=== PATIENT | male | born 1985 | race Caucasian/White ===

== ENCOUNTER 2018-07-31 07:33 | Emergency (ER) | payer BC, SELFPAY ==
[2018-07-31 07:39] VITALS: BP 171/97; PULSE 108; RESP 18; TEMP 36.2; O2SAT 95
--- NOTE | 2018-07-31 08:06 | ED.GENADUL_ITS ---
Discharge Plan Disposition Patient Disposition: HOME Condition: Stable Discharge Details Chief Complaint: RespSymp Clinical Impression: Viral URI, RAD (reactive airway disease) Primary Care Provider: Ming Craig ED Provider: Flori Jennings Home Meds and New Rx's Prescriptions: New prednisone 20 mg tablet 60 mg PO DAILY Qty: 12 RF: 0 Continued doxycycline hyclate 100 MG capsule 100 mg PO BID Qty: 13 RF: 0 albuterol sulfate [ProAir HFA] 200 PUFF HFA aerosol inhaler 2 puff Inhalation Q4H PRN PRNQty: 1 RF: 0 ibuprofen 200 MG tablet 200 mg PO PRNRF: 0 Discharge Instructions Instructions: Prednisone (By mouth), Upper Respiratory Infection (ED), Reactive Airways Disease (ED) Additional Instructions: Please return immediately to the emergency department if you develop any new or worsening symptoms or if you become otherwise concerned. It is extremely important that you make an appointment to be seen by your primary care doctor within the next 1-2 weeks in follow-up for this visit. Referrals: Ming Craig [Primary Care Provider] - Discharge Data Discharge Date/Time-TO BE ENTERED AT DEPARTURE: 07/31/18 10:48 Medical Decision Making Tae Hunter is a 33-year-old male without history of major medical problems presenting to the emergency department with cough for the past 2-3 days, also with very mild shortness of breath and nausea without vomiting. On exam patient is very well and nontoxic appearing. He has normal work of breathing with slight wheeze in bilateral upper lobes. Concern for influenza versus reactive airway disease versus less likely pneumonia. Heart rate 100 on exam. Exam/history not consistent with sepsis, ACS, PE, acute aortic pathology, metabolic/right disturbance, anemia. Plan for CXR, flu swab, duoneb, IVF hydration. Will monitor and reassess. On exam patient reports feeling much better after breathing treatment and fluids. On exam is improved, still slight wheeze bilateral upper lobes. Plan for second DuoNeb. Given that patient has been using albuterol inhaler at home will start patient on prednisone. Chest x-ray okay, flu swab negative. Suspect viral upper respiratory infection with reactive airway disease component. I had a lengthy discussion with Patient regarding return to emergency department precautions and importance of outpatient follow-up with PCP. Pt verbalizes understanding of the plan. Disposition decision was made weighing the risks and benefits of hospitalization versus outpatient treatment, the risk for further decompensation, and the patient's wishes. Medical Records Medical records reviewed: Yes I reviewed the patient's medical records. Imaging Data Radiologic Study: Attestation: I personally reviewed and interpreted this imaging study as follows: Radiologist's impression: PA AND LATERAL CHEST: Comparison is made with 07/31/16. The heart is normal in size. The lungs are clear. The mediastinal structures and pleura appear intact. CONCLUSION: Normal chest. HPI General Mode of arrival: ambulatory . Date/Time Provider Initiated Documentation: 07/31/18 08:03 . Limitations to Documentation: no limitations . Information obtained by: patient, RN notes reviewed and old records reviewed . HPI Narrative: Tae Hunter is a 33-year-old man with out reported history of major medical problems presenting to the emergency department with cough. Patient reports over the past 3 days he has had persistent and fairly severe cough. Nonproductive. He has had mild subjective fevers and also some nausea. Patient reports that he has been drinking plenty of fluids, but has eaten less over the past few days secondary to decreased appetite. Patient reports that he feels pressure in his head when he coughs, but does not have any pain when not coughing. He denies any other pain. Patient reports that he feels very mildly short of breath. He states that he has not been diagnosed with asthma, but he does have an inhaler that he uses infrequently. Patient reports that he has used it occasionally over the past few days, and this has helped his symptoms. Patient reports that overall he feels very well, and went to work this morning as usual. He reports that he came to the emergency department because his boss sent him home for work for frequent coughing. He denies vomiting, diarrhea, numbness/tingling/weakness. No recent travel. Related Data Home Medications Medication Instructions Recorded Confirmed ibuprofen 200 mg PO PRN 07/31/16 albuterol sulfate [ProAir HFA] 2 puff INHALATION Q4H PRN PRN #1 10/30/17 inh doxycycline hyclate 100 mg PO BID #13 cap 10/30/17 prednisone 60 mg PO DAILY #12 tab 07/31/18 Previous Rx's Medication Instructions Recorded albuterol sulfate [ProAir HFA] 2 puff INHALATION Q4H PRN PRN #1 10/30/17 inh doxycycline hyclate 100 mg PO BID #13 cap 10/30/17 prednisone 60 mg PO DAILY #12 tab 07/31/18 Allergies Allergy/AdvReac Type Severity Reaction Status Date / Time sulfamethoxazole Allergy Unknown Unverified 10/30/17 17:23 trimethoprim Allergy Unknown Unverified 10/30/17 17:23 General Stated Complaint: RespSymp WALLACE: 4 Review of Systems Review of Systems Constitutional: reports subjective fevers Eyes: denies eye pain ENT: denies facial pain, dental pain, sore throat Cardiovascular: denies chest pain, edema Respiratory: reports mild SOB, cough GI: denies abdominal pain, vomiting, diarrhea, reports nausea : denies flank pain MSK: denies back pain, neck pain, arthralgias, myalgias Skin: denies rash Neuro: denies headaches, lightheadedness, weakness PFSH Medical History Calculus of left kidney Surgical History Extracorporeal shock wave lithotripsy (01/25/16) Social History Smoking/Tobacco Use Status: Current every day Exam Narrative Exam Narrative: Constitutional: well and [id number], pleasant, conversing normally HENT: head atraumatic, normocephalic normal inspection, mucous membranes moist Eyes: conjunctiva normal, sclera normal, pupils 3mm b/l Neck: no stridor, normal ROM, trachea midline Chest: normal inspection Resp: normal work of breathing, mild exp wheeze b/l upper lobes Cardio: normal rate, normal rhythm, no murmur appreciated Back: normal inspection, no rash Skin: warm, dry, normal color Neuro: alert, not altered, grossly non-focal, normal tone Ext: no edema, no posterior calf TTP Psych: normal mood, normal affect, normal behavior Course Vital Signs Temperature 36.2 C L 07/31/18 07:39 Pulse 108 H 07/31/18 07:39 Respiratory Rate 18 07/31/18 07:39 Blood Pressure 171/97 H 07/31/18 07:39 Pulse Oximetry 95 07/31/18 07:39 Temperature 36.2 C L 07/31/18 07:39 Temperature Source Temporal Artery Scan 07/31/18 07:39 Pulse 108 H 07/31/18 07:39 Respiratory Rate 18 07/31/18 07:39 Respiratory Effort Non-Labored 07/31/18 07:57 Blood Pressure 171/97 H 07/31/18 07:39 Pulse Oximetry 95 07/31/18 07:39 Oxygen Delivery Method Room Air 07/31/18 07:39 Oxygen Flow Rate 0 07/31/18 07:39
--- NOTE | 2018-07-31 08:13 | DI.RAD_ITS ---
SYMPTOM/DIAGNOSIS: COUGH PA AND LATERAL CHEST: Comparison is made with 07/31/16. The heart is normal in size. The lungs are clear. The mediastinal structures and pleura appear intact. CONCLUSION: Normal chest.
[2018-07-31] MEDS: Normal Saline 1,000 ML 1000 ML IV (08:27)
[2018-07-31] MEDS: Albuterol/Ipratropium 3 ML UPD VIAL UPD ×2 (08:28→10:30)
[2018-07-31 08:40] VITALS: BP 129/79; PULSE 94; RESP 18; O2SAT 96
--- NOTE | 2018-07-31 08:44 | NUR.NOTE ---
Nursing Note: Pt off unit to XR
[2018-07-31] MEDS: predniSONE 20 MG TAB 60 MG PO (10:30)
== END 2018-07-31 10:48 | disposition home or self-care (01) ==
PROVIDERS: Emergency Provider Student in an Organized Health Care Education/Training Program; PCP Specialist/Technologist Athletic Trainer
DX: J06.9 Acute upper respiratory infection, unspecified (principal); J45.909 Unspecified asthma, uncomplicated; R11.0 Nausea
CPT/HCPCS: 87449; 94640; 96360; 96361; 99283; 71046; J7512; J7620

== ENCOUNTER 2019-10-31 13:25 | Emergency (ER) | payer SELFPAY ==
[2019-10-31 13:29] VITALS: BP 161/106; PULSE 82; RESP 16; TEMP 36.5; O2SAT 98
--- NOTE | 2019-10-31 13:48 | DI.RAD_ITS ---
EXAM: XR PORTABLE CHEST AP CLINICAL HISTORY: Cough and short of breath TECHNIQUE: 2D digital imaging was performed. COMPARISON: No exams were available for comparison FINDINGS: MEDIASTINUM: Normal. HEART: Normal. PULMONARY VASCULATURE: Normal. LUNGS: Clear. PLEURAL SPACE: No pleural effusion or pneumothorax. BONE:Normal. OTHER FINDINGS:Normal. IMPRESSION: No acute pulmonary findings. DATA REPOSITORY: RADIATION DOSE DELIVERED:
--- NOTE | 2019-10-31 13:49 | ED.GENADUL_ITS ---
Discharge Plan Disposition Patient Disposition: HOME Condition: Stable Discharge Details Chief Complaint: RespSymp Clinical Impression: Viral upper respiratory illness Primary Care Provider: Ming Craig ED Provider: Edu Sims Home Meds and New Rx's Prescriptions: New prednisone 20 mg tablet 40 mg PO DAILY 5 Days Qty: 10 RF: 0 Continued albuterol sulfate [ProAir HFA] 200 PUFF HFA aerosol inhaler 2 puff Inhalation Q4H PRN PRNQty: 1 RF: 0 ibuprofen 200 MG tablet 200 mg PO Q6H PRN PRNRF: 0 Discharge Instructions Instructions: Upper Respiratory Infection (ED) Additional Instructions: As we discussed we will have you take a course of prednisone for mild wheezing. Continue your previously prescribed albuterol as needed. Return if you have increased difficulty breathing, develop high fever, chest pain, or any other acute concerns. You have orders pending for outpatient influenza as well as coronavirus screening. You will receive a phone call regarding appointment time tomorrow. Stand Alone Forms: POSITIVE COVID-19/TO BE TESTED, Work Release Medical Decision Making 34-year-old male smoker with a history of reactive airway disease presents with day 2 of cough with mild congestion and associated general malaise and weakness. He has not had any recent travel and no known sick contacts. He is afebrile with 98% sat on room air. Noted to be slightly hypertensive on triage vital signs. Exam with few end expiratory wheezes at the bases, otherwise reassuring. Differential diagnosis includes pneumonia, bronchitis, viral syndrome. Patient referred for chest x-ray which does not show any acute findings. Due to concurrent constraints in izaguirre virus testing, I will order this as an outpatient for the patient to be done tomorrow in addition to influenza screening. He does have some mild end expiratory wheeze which I feel he will benefit from a burst of oral prednisone given his underlying reactive airway disease. We will ask care management to make him a follow-up in primary care clinic. He is s table and appropriate for outpatient management at this time. HPI General Mode of arrival: ambulatory . Date/Time Provider Initiated Documentation: 10/31/19 13:26 . Limitations to Documentation: no limitations . Information obtained by: patient . History of Present Illness 34 year old M presents to the emergency department with the chief complaint of Cough and congestion, described as moderate, Quality is described as constant, and is localized to the chest. Patient reports no radiation. Patient started experiencing this day(s) and it has been constant. No relieving factors improve symptom(s), No exacerbating factors reported . Patient notes cough, fever/chills, loss of appetite, malaise and shortness of breath. Patient did receive the following treatments prior to arrival, none Related Data Home Medications Medication Instructions Recorded Confirmed ibuprofen 200 mg PO Q6H PRN PRN 07/31/16 10/31/19 albuterol sulfate [ProAir HFA] 2 puff INHALATION Q4H PRN PRN #1 10/30/17 10/31/19 inh prednisone 40 mg PO DAILY 5 Days #10 tab 10/31/19 Previous Rx's Medication Instructions Recorded albuterol sulfate [ProAir HFA] 2 puff INHALATION Q4H PRN PRN #1 10/30/17 inh prednisone 40 mg PO DAILY 5 Days #10 tab 10/31/19 Allergies Allergy/AdvReac Type Severity Reaction Status Date / Time sulfamethoxazole Allergy Unknown Unverified 10/31/19 13:34 trimethoprim Allergy Unknown Unverified 10/31/19 13:34 General Stated Complaint: RespSymp WALLACE: 3 Review of Systems Narrative: Cough, congestion, short of breath. No chest pain, no travel. No known sick contacts. 6 systems reviewed and otherwise negative [facility] Medical History Calculus of left kidney Surgical History Extracorporeal shock wave lithotripsy (01/25/16) Social History Smoking/Tobacco Use Status: Current every day Alcohol Intake: current Alcohol Intake frequency: 3 or more drinks per day Drug use: Never Do you feel safe at home: Yes Do you feel safe in your relationship?: Yes Exam Narrative Exam Narrative: GEN: awake, alert, oriented 3. Pleasant, well groomed, interactive. HEAD: Normocephalic, atraumatic ENT: Mucous membranes moist, oropharynx unremarkable, External ear exam unremarkable EYES: PERRL, EOMI NECK: Full ROM, no ALONDRA, no menigismus CHEST/RESP: Nontender, few scant end expiratory wheezes at bases bilaterally CARDIOVASCULAR: RRR, no murmur, rub arelis. 2+ Rad pulse bilateral ABDOMEN: Soft, nontender, no mass. +Bowel sounds EXT: Full ROM, no edema, no rash Neuro: Grossly normal neurologic exam, conversant, interactive. Psych: Speech fluent, thoughts congruent, affect normal Course Vital Signs Vital signs: Vital Signs Temperature 36.5 C 10/31/19 13:29 Pulse 82 10/31/19 13:29 Respiratory Rate 16 10/31/19 13:29 Blood Pressure 161/106 H 10/31/19 13:29 Pulse Oximetry 98 10/31/19 13:29 Temperature 36.5 C 10/31/19 13:29 Pulse 82 10/31/19 13:29 Respiratory Rate 16 10/31/19 13:29 Respiratory Effort Non-Labored 10/31/19 13:38 Respiratory Depth Normal 10/31/19 13:38 Blood Pressure 161/106 H 10/31/19 13:29 Blood Pressure Position Sitting 10/31/19 13:29 Pulse Oximetry 98 10/31/19 13:29 Oxygen Delivery Method Room Air 10/31/19 13:29 Oxygen Flow Rate 0 10/31/19 13:29 Pain Level 0 10/31/19 13:29
--- NOTE | 2019-10-31 14:07 | DI.VRAD_ITS ---
PROCEDURE INFORMATION: Exam: XR Chest, 1 View Exam date and time: 10/31/2019 2:01 PM Age: 34 years old Clinical indication: Other: Cough and short of breath TECHNIQUE: Imaging protocol: XR of the chest Views: 1 view. COMPARISON: CR XR CHEST 2V PA LATERAL 07/31/2018 8:43 AM FINDINGS: Lungs: Unremarkable. No consolidation. Pleural space: Unremarkable. No pleural effusion. No pneumothorax. Heart/Mediastinum: Unremarkable. No cardiomegaly. Bones/joints: Unremarkable. IMPRESSION: No acute findings. Dictated and Authenticated by: Kar Segovia MD. Ordering:LOVELY Sorensen MD
[2019-10-31] MEDS: predniSONE 20 MG TAB 60 MG PO (14:22)
--- NOTE | 2019-10-31 14:26 | NUR.NOTE ---
follow up with PCP within a week regarding chest. faxed to [facility]. Nursing Note:
== END 2019-10-31 14:34 | disposition home or self-care (01) ==
PROVIDERS: Emergency Provider Emergency Medicine; PCP Specialist/Technologist Athletic Trainer
DX: J06.9 Acute upper respiratory infection, unspecified (principal); R06.2 Wheezing; F17.210 Nicotine dependence, cigarettes, uncomplicated
CPT/HCPCS: 99283; 71045; J7512

== ENCOUNTER 2019-11-01 08:25 | Outpatient (CLI) | payer SELFPAY ==
[2019-11-03 18:33] LABS: SARS-CoV-2 RNA Undetected (Undetected); SARS-CoV-2 Specimen Source Nasopharynx
== END 2019-11-01 08:45 ==
PROVIDERS: PCP Nurse Practitioner Family; Visit Provider Emergency Medicine
DX: Z11.59 Encounter for screening for other viral diseases (principal)
CPT/HCPCS: U0003

== ENCOUNTER 2020-04-19 19:33 | Emergency (ER) | payer SELFPAY ==
[2020-04-19 19:38] VITALS: BP 179/108; PULSE 66; RESP 18; TEMP 36.3; O2SAT 97
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
[2020-04-19] MEDS: Tetracaine 0.5% 4 ML BTL (20:35)
[2020-04-19] MEDS: Acetaminophen 500 MG TAB 1000 MG PO (22:20)
[2020-04-19] MEDS: Ibuprofen 600 MG TAB PO (22:20)
[2020-04-19 22:50] VITALS: BP 175/115; PULSE 83; RESP 17; TEMP 36.5; O2SAT 97
--- NOTE | 2020-04-20 00:36 | NUR.NOTE ---
Refferal to [facility] sent to for follow up. Kathleen GOODWIN Nursing Note:
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
== END 2020-04-19 22:58 | disposition home or self-care (01) ==
PROVIDERS: Emergency Provider Physician Assistant; PCP Nurse Practitioner Family
DX: T26.61XA Corrosion of cornea and conjunctival sac, right eye, initial encounter (principal); T54.3X1A Toxic effect of corrosive alkalis and alkali-like substances, accidental (unintentional), initial encounter
CPT/HCPCS: 99284

== ENCOUNTER 2021-01-17 08:57 | Outpatient (REF) | payer BC, SELFPAY ==
[2021-01-17 13:28] LABS: Anion Gap 8.5 mmol/L (3-11); BUN 13 mg/dL (7-18); CO2 28.5 mmol/L (21.0-32.0); Calcium 9.3 mg/dL (8.5-10.1); Calculated LDL 148 mg/dL (<100); Chloride 104 mmol/L (98-107); Cholesterol 213 mg/dL (<200); Glucose 120 mg/dL (74-106); HDL Cholesterol 34 mg/dL (40-60); Potassium 4.2 mmol/L (3.5-5.1); Sodium 141 mmol/L (136-145); Triglyceride 156 mg/dL (<150)
== END 2021-01-17 08:58 | disposition home or self-care (01) ==
LOC: NCHCN 08:57
PROVIDERS: PCP Nurse Practitioner Family; Visit Provider Physician Assistant
DX: I10 Essential (primary) hypertension (principal)
CPT/HCPCS: 80048; 80061

== ENCOUNTER 2021-09-09 13:32 | Emergency (ER) | payer BC, SELFPAY ==
[2021-09-09 13:50] VITALS: BP 141/88; PULSE 98; RESP 18; TEMP 36.4; O2SAT 96
--- NOTE | 2021-09-09 14:07 | W.ED.GENAD ---
Discharge Plan Disposition Patient Disposition: HOME Condition: Stable Discharge Details Clinical Impression: Sinusitis Primary Care Provider: Hailey Messina ED Provider: Giovani Truong Home Meds and New Rx's Prescriptions: New amoxicillin-pot clavulanate 875-125 mg tablet 1 tab PO BID Qty: 10 0RF Continued lisinopril 10 mg Tablet 10 mg PO DAILY 0RF albuterol sulfate [ProAir HFA] 200 PUFF HFA aerosol inhaler 2 puff Inhalation Q4H PRN PRN (Reason: shortness of breath or wheezing) Qty: 1 0RF ibuprofen 200 MG tablet 200 mg PO Q6H PRN PRN0RF Discharge Instructions Instructions: Sinusitis (ED) Additional Instructions: Stay well-hydrated and feel free to take [id number] cold medication as needed. Take antibiotic as prescribed and fully completed and if not improving in the next week please follow-up with your primary care provider. Due to you stating that you could not get your inhaler filled by your primary care provider at [facility] a prescription has been sent to [facility] for your refill. Referrals: Hailey Messina [Primary Care Provider] - (If not improving in the next week.) Discharge Data Discharge Date/Time-TO BE ENTERED AT DEPARTURE: 09/09/21 14:18 Medical Decision Making COVID 14 days ago and over the last day or so has had worsening nasal congestion, drainage, facial pain. Patient ongoing smoker with intermittent reactive airway disease which she is using albuterol inhaler for test this. Physical exam consistent with sinusitis. Patient does have mild diffuse wheezing but patient appears in no acute distress and is otherwise unremarkable for exam. Chest x-ray was considered given recent COVID but given that patient's main complaint is sinusitis and he has an ongoing smoker I do not feel that plan of treatment would change based upon chest x-ray given that patient will already be placed upon Augmentin for sinusitis. Close monitoring of symptoms along with return and follow-up precautions were thoroughly discussed with patient. After discussion of diagnosis and plan of care patient has no further needs, questions, or concerns and states clear understanding to return to the emergency department for any worsening symptoms. HPI General Mode of arrival: ambulatory. Date/Time Provider Initiated Documentation: 09/09/21 13:49. Limitations to Documentation: no limitations. Information obtained by: patient and RN notes reviewed. History of Present Illness 36 year old M presents to the emergency department with the chief complaint of Increased nasal pressure, congestion, and drainage causing postnasal drip , described as moderate and severe, with intensity rated at 6. Quality is described as aching, and is localized to the head. Patient reports no radiation. Patient started experiencing this day(s) (2) and it has been constant. improves with No relieving factors improve symptom(s), No exacerbating factors reported . Patient notes headaches; denies chest pain. Patient did receive the following treatments prior to arrival, none Related Data Home Medications Medication Instructions Recorded Confirmed ibuprofen 200 mg tablet 200 mg PO Q6H PRN PRN 07/31/16 09/09/21 lisinopril 10 mg tablet 10 mg PO DAILY 04/19/20 09/09/21 albuterol sulfate 90 mcg/actuation 2 puff INHALATION Q4H PRN PRN #1 09/09/21 aerosol inhaler (ProAir HFA) inh amoxicillin 875 mg-potassium 1 tab PO BID #10 tab 09/09/21 clavulanate 125 mg tablet Previous Rx's Medication Instructions Recorded albuterol sulfate 90 mcg/actuation 2 puff INHALATION Q4H PRN PRN #1 09/09/21 aerosol inhaler (ProAir HFA) inh amoxicillin 875 mg-potassium 1 tab PO BID #10 tab 09/09/21 clavulanate 125 mg tablet Allergies Allergy/AdvReac Type Severity Reaction Status Date / Time sulfamethoxazole Allergy Unknown Unverified 09/09/21 13:57 trimethoprim Allergy Unknown Unverified 09/09/21 13:57 General Stated Complaint: RespSymp WALLACE: 4 Review of Systems Constitutional Constitutional: Denies body ache(s), Denies chills, Denies fever(s), Reports headache(s) and Reports malaise ENT Ears, Nose, Mouth, and Throat: Reports as per HPI, Denies ear discharge, Denies otalgia, Reports headache(s), Reports nasal congestion, Reports nasal discharge, Denies neck pain, Reports sinus pressure, Denies sore throat and Denies throat swelling Cardiovascular Cardiovascular: Denies chest pain and Reports dyspnea Respiratory Respiratory: Denies cough, Denies pain with cough and Reports dyspnea Musculoskeletal Musculoskeletal: Denies joint swelling and Denies neck pain Integumentary/Breasts Skin/Breast: Denies rash Neurologic Neurologic: Reports headache(s) Allergic/Immunologic Allergic/Immunologic: Denies throat swelling PFSH All Active Problems (Updated 09/09/21 @ 14:09 by Giovani Truong NP) Calculus of left kidney (Acute) Sinusitis (Acute) Medical History Calculus of left kidney Surgical History Extracorporeal shock wave lithotripsy (01/25/16) Social History Smoking/Tobacco Use Status: Current every day Tobacco Type: cigarettes Smoking risk assessment performed?: Yes Alcohol Intake: former Drug use: Never Substance use type: does not use Do you feel safe at home: Yes Do you feel safe in your relationship?: Yes Exam Const General: cooperative, comfortable and no acute distress Orientation: alert and awake HENOK Head: normal to inspection, normocephalic and atraumatic Ears: hearing grossly normal bilaterally and TM's normal bilaterally General nose exam: external nose normal Face and sinus: no erythema Mouth: oral mucosae normal, no drooling, no muffled voice and no trismus Throat: posterior oropharynx normal Neck Neck: normal visual inspection, full ROM, no lymphadenopathy, no meningeal signs, trachea midline and supple Resp Effort & Inspection: normal respiratory effort and able to speak in complete sentences Auscultation: clear to auscultation bilaterally Cardio Rate: regular rate Rhythm: regular rhythm Heart Sounds: S1 normal, S2 normal and normal S1 and S2 Skin General skin exam: no rashes or lesions noted and dry skin (warm) Neuro General: patient alert, patient awake, patient oriented x3, gait normal and moves all extremities Cognition: normal cognition Speech: speech normal Course Vital Signs Vital signs: Vital Signs Temperature 36.4 C L 09/09/21 13:50 Pulse 98 H 09/09/21 13:50 Respiratory Rate 18 09/09/21 13:50 Blood Pressure 141/88 H 09/09/21 13:50 Pulse Oximetry 96 09/09/21 13:50 Temperature 36.4 C L 09/09/21 13:50 Temperature Source Temporal Artery Scan 09/09/21 13:50 Pulse 98 H 02/13/22 13:50 Respiratory Rate 18 09/09/21 13:50 Respiratory Effort Non-Labored 09/09/21 13:54 Blood Pressure 141/88 H 09/09/21 13:50 Blood Pressure Position Sitting 09/09/21 13:50 Pulse Oximetry 96 09/09/21 13:50 Pain Level 0 09/09/21 13:50
== END 2021-09-09 14:18 | disposition home or self-care (01) ==
PROVIDERS: Emergency Provider Nurse Practitioner Family; PCP Physician Assistant
DX: J01.80 Other acute sinusitis (principal); F17.210 Nicotine dependence, cigarettes, uncomplicated; Z86.16 Personal history of COVID-19
CPT/HCPCS: 99283

== ENCOUNTER 2021-12-21 09:17 | Emergency (ER) | payer SELFPAY ==
[2021-12-21 09:22] VITALS: BP 129/105; PULSE 111; RESP 16; TEMP 36.6; O2SAT 95
--- NOTE | 2021-12-21 09:32 | W.ED.GENAD ---
Discharge Plan Disposition Patient Disposition: HOME Condition: Improving Discharge Details Clinical Impression: Nausea, vomiting and diarrhea Primary Care Provider: Forrest Vincent ED Provider: Gonzalez Jean Home Meds and New Rx's Prescriptions: New ondansetron HCl 4 mg tablet 4 mg PO Q8H PRNQty: 10 0RF Continued lisinopril 10 mg Tablet 10 mg PO DAILY albuterol sulfate [ProAir HFA] 200 PUFF HFA aerosol inhaler 2 puff Inhalation Q4H PRN PRN (Reason: shortness of breath or wheezing) Qty: 1 0RF ibuprofen 200 MG tablet 200 mg PO Q6H PRN PRN Discharge Instructions Instructions: Acute Nausea and Vomiting (ED), Acute Diarrhea (ED) Additional Instructions: Zofran as directed. Plenty of fluids to avoid dehydration. Bananas, rice, applesauce, tea, toast, advance diet as tolerated. [id number] Imodium as directed for diarrhea. Please watch for new or worsening symptoms and return to the ER for any concerns. Lastly, I recommend reaching out to your primary care provider to make them aware of your ER visit and need for outpatient reevaluation. Medical Decision Making 36-year-old gentleman, denies significant past medical history presents for nausea, vomiting, diarrhea that began around 4:00 this morning. He states that his significant other had similar symptoms last night after they both ate at [employer] but she now feels better. He denies any true abdominal pain, fever, black tarry stools or bright red blood in the stools. Clinically he appears well, nontoxic, plan is to obtain IV access, give IV fluid, Zofran routine screening laboratory values, and p.o. challenge 1 Zofran has been given. Abdomen is soft, nontender, I see no clear indication to obtain emergent CT imaging Laboratory values reveal what appears to be hemoconcentration. White blood cell count of 13.37 hemoglobin 19.9 hematocrit 54.9 electrolytes unremarkable, creatinine 1.5 with a GFR of 53.57, LFTs unremarkable, lipase 52, urinalysis negative for nitrates or leuk esterase. Patient will receive another liter of IV fluid and will recheck the CBC. He is tolerating p.o. intake and has difficulty and had no vomiting while under my care. Repeat CBC reveals a white blood cell count of 10.66 hemoglobin 14.7 and hematocrit 42.8. Patient is feeling better. COVID, flu, RSV negative. Will provide short-term prescription of Zofran, recommended bland diet, advancing as tolerated. Standard discharge and return precautions were provided. Patient understands, is agreeable to this plan, and has no additional questions or concerns upon discharge. This documentation was generated using [employer] system, please disregard any oddities of phrase or misspellings. Medical Records Medical records reviewed: Yes I reviewed the patient's medical records. Lab Data Lab results reviewed: Yes I reviewed the patient's lab results. Labs: Laboratory Tests Range/Units 12/21/21 12/21/21 12/21/21 09:43 09:43 09:45 WBC (4.4-10.8) 10^3/uL 13.37 H RBC (4.36-5.78) 10^6/uL 6.55 H Hgb (13.5-17.5) g/dL 19.9 H* Hct (40.0-50.0) % 54.9 H MCV (80-95) fL 84 MCH (27.0-33.0) pg 30.4 MCHC (32.0-36.0) % 36.2 H RDW (11.8-14.1) % 12.3 Plt Count (130-400) 10^3/uL 171 MPV (8.0-11.0) fL 11.4 H Immature Gran % 0.3 Neutrophils % 85.2 Lymphocytes % 7.6 Monocytes % 5.8 Eosinophils % 0.4 Basophils % 0.7 Nucleated RBC % (0.0-0.3) % 0.0 Absolute Neutrophils (1.2-6.7) 10^3/uL 11.39 H Absolute Lymphocytes (1.2-3.4) 10^3/uL 1.02 L Absolute Monocytes (0.1-0.8) 10^3/uL 0.78 Absolute Eosinophils (0.0-0.7) 10^3/uL 0.05 Absolute Basophils (0.0-0.2) 10^3/uL 0.09 RBC Morphology Normal Sodium (136-145) mmol/L 137 Potassium (3.5-5.1) mmol/L 4.0 Chloride (98-107) mmol/L 105 Carbon Dioxide (21.0-32.0) mmol/L 23.3 Anion Gap (3-11) mmol/L 8.7 BUN (7-18) mg/dL 17 Creatinine (0.70-1.30) mg/dL 1.5 H Estimated GFR/1.73 m2 (mL/min/1.73m2) 53.57 Glucose (74-106) mg/dL 151 H Calcium (8.5-10.1) mg/dL 9.7 Total Bilirubin (0.2-1.0) mg/dL 0.6 AST (15-37) U/L 19 ALT (16-63) U/L 44 Alkaline Phosphatase (46-116) U/L 98 Total Protein (6.4-8.2) g/dL 8.5 H Albumin (3.4-5.0) g/dL 4.8 Lipase (73-393) U/L 52 Urine Color (Yellow) Urine Clarity (Clear) Urine pH (5-8) Ur Specific [place] (1.005-1.025) Urine Protein (Negative) mg/dL Urine Ketones (Negative) mg/dL Urine Blood (Negative) Urine Nitrite (Negative) Urine Bilirubin (Negative) Urine Urobilinogen (Up TO 0.2) EU/dL Ur Leukocyte Esterase (Negative) Urine Glucose (Negative) mg/dL COVID-19 Source Not Applicable SARS-CoV-2 (PCR) (Negative) Negative Influenza Type A (PCR) (Negative) Negative Influenza Type B (PCR) (Negative) Negative RSV (PCR) (Negative) Negative Range/Units 12/21/21 12/21/21 11:35 11:52 WBC (4.4-10.8) 10^3/uL 10.66 RBC (4.36-5.78) 10^6/uL 4.90 Hgb (13.5-17.5) g/dL 14.7 D Hct (40.0-50.0) % 42.8 MCV (80-95) fL 87 MCH (27.0-33.0) pg 30.0 MCHC (32.0-36.0) % 34.3 D RDW (11.8-14.1) % 12.4 Plt Count (130-400) 10^3/uL 121 L MPV (8.0-11.0) fL 11.7 H Immature Gran % Neutrophils % Lymphocytes % Monocytes % Eosinophils % Basophils % Nucleated RBC % (0.0-0.3) % Absolute Neutrophils (1.2-6.7) 10^3/uL Absolute Lymphocytes (1.2-3.4) 10^3/uL Absolute Monocytes (0.1-0.8) 10^3/uL Absolute Eosinophils (0.0-0.7) 10^3/uL Absolute Basophils (0.0-0.2) 10^3/uL RBC Morphology Sodium (136-145) mmol/L Potassium (3.5-5.1) mmol/L Chloride (98-107) mmol/L Carbon Dioxide (21.0-32.0) mmol/L Anion Gap (3-11) mmol/L BUN (7-18) mg/dL Creatinine (0.70-1.30) mg/dL Estimated GFR/1.73 m2 (mL/min/1.73m2) Glucose (74-106) mg/dL Calcium (8.5-10.1) mg/dL Total Bilirubin (0.2-1.0) mg/dL AST (15-37) U/L ALT (16-63) U/L Alkaline Phosphatase (46-116) U/L Total Protein (6.4-8.2) g/dL Albumin (3.4-5.0) g/dL Lipase (73-393) U/L Urine Color (Yellow) Yellow Urine Clarity (Clear) Clear Urine pH (5-8) 6.0 Ur Specific [place] (1.005-1.025) >= 1.030 H Urine Protein (Negative) mg/dL 30 H Urine Ketones (Negative) mg/dL Negative Urine Blood (Negative) Trace-lysed H Urine Nitrite (Negative) Negative Urine Bilirubin (Negative) Negative Urine Urobilinogen (Up TO 0.2) EU/dL 0.2 Ur Leukocyte Esterase (Negative) Negative Urine Glucose (Negative) mg/dL Negative COVID-19 Source SARS-CoV-2 (PCR) (Negative) Influenza Type A (PCR) (Negative) Influenza Type B (PCR) (Negative) RSV (PCR) (Negative) HPI General Mode of arrival: ambulatory. Date/Time Provider Initiated Documentation: 12/21/21 09:17. Limitations to Documentation: no limitations. Information obtained by: patient. History of Present Illness 36 year old M presents to the emergency department with the chief complaint of n/v/d, described as mild, with intensity rated at 2. Quality is described as other (cramping after v/d), and is localized to the abdomen. Patient reports no radiation. Patient started experiencing this hour(s) (6) and it has been intermittent. No relieving factors improve symptom(s), No exacerbating factors reported . Patient notes nausea/vomiting. Patient did receive the following treatments prior to arrival, none Related Data Home Medications Medication Instructions Recorded Confirmed ibuprofen 200 mg tablet 200 mg PO Q6H PRN PRN 07/31/16 12/21/21 lisinopril 10 mg tablet 10 mg PO DAILY 04/19/20 12/21/21 albuterol sulfate 90 mcg/actuation 2 puff inhalation Q4H PRN PRN 09/09/21 12/21/21 aerosol inhaler (ProAir HFA) shortness of breath or wheezing #1 inh ondansetron HCl 4 mg tablet 4 mg PO Q8H PRN #10 tabs 12/21/21 Previous Rx's Medication Instructions Recorded albuterol sulfate 90 mcg/actuation 2 puff inhalation Q4H PRN PRN 09/09/21 aerosol inhaler (ProAir HFA) shortness of breath or wheezing #1 inh ondansetron HCl 4 mg tablet 4 mg PO Q8H PRN #10 tabs 12/21/21 Allergies Allergy/AdvReac Type Severity Reaction Status Date / Time sulfamethoxazole Allergy Unknown Unverified 12/21/21 09:24 trimethoprim Allergy Unknown Unverified 12/21/21 09:24 General Stated Complaint: Nausea/Vomit/Diar WALLACE: 4 Review of Systems Constitutional Constitutional: Denies fever(s) Cardiovascular Cardiovascular: Denies chest pain and Denies dyspnea Respiratory Respiratory: Denies cough and Denies dyspnea Gastrointestinal Gastrointestinal: Reports abdominal pain, Denies melena, Denies hematochezia, Denies constipation, Reports diarrhea, Reports nausea and Reports vomiting Genitourinary Genitourinary: Denies dysuria Musculoskeletal Musculoskeletal: Denies back pain Integumentary/Breasts Skin/Breast: Denies rash PFSH All Active Problems (Updated 12/21/21 @ 12:17 by DANN Morrow) Calculus of left kidney (Acute) Nausea, vomiting and diarrhea (Acute) Medical History Calculus of left kidney Surgical History Extracorporeal shock wave lithotripsy (01/25/16) Social History Smoking/Tobacco Use Status: Current every day Tobacco Type: cigarettes Smoking risk assessment performed?: Yes Alcohol Intake: former Drug use: Never Substance use type: does not use Do you feel safe at home: Yes Do you feel safe in your relationship?: Yes Exam Const General: cooperative, healthy appearing, comfortable and no acute distress Orientation: alert, awake and oriented x3 HENMT Head: normal to inspection, normocephalic and atraumatic Face and sinus: normal facial exam Mouth: moist mucous membranes Eyes General: appearance normal, both eyes and all related structures Conjunctivae: conjunctivae normal Neck Neck: normal visual inspection, full ROM, no meningeal signs, trachea midline and supple Resp Effort & Inspection: normal respiratory effort and able to speak in complete sentences Auscultation: clear to auscultation bilaterally Cardio Rate: regular rate Rhythm: regular rhythm GI Palpation: soft, not firm, no guarding, no pulsatile masses and nontender Auscultation: normal bowel sounds Back/Spine/Pelvis Back: No back tenderness Skin General skin exam: no rashes or lesions noted Neuro General: patient alert, patient awake, moves all extremities and no focal motor deficits Cognition: normal cognition Speech: speech normal Gait: normal gait Sensory Exam: no sensory deficits noted Psych Appearance: grossly normal Mental Status: mental status grossly normal Course Vital Signs Vital signs: Vital Signs Temperature 36.6 C 12/21/21 09:22 Pulse 111 H 12/21/21 09:22 Respiratory Rate 16 12/21/21 09:22 Blood Pressure 129/105 H 12/21/21 09:22 Pulse Oximetry 95 12/21/21 09:22 Temperature 36.6 C 12/21/21 09:22 Pulse 111 H 12/21/21 09:22 Respiratory Rate 16 12/21/21 09:22 Blood Pressure 129/105 H 12/21/21 09:22 Blood Pressure Position Sitting 12/21/21 09:22 Pulse Oximetry 95 12/21/21 09:22 Oxygen Delivery Method Room Air 12/21/21 09:22 Oxygen Flow Rate 0 12/21/21 09:22 Pain Level 0 12/21/21 09:22
[2021-12-21] MEDS: Normal Saline 1,000 ML 1000 ML IV ×2 (09:49→10:40)
[2021-12-21] MEDS: Ondansetron 4 MG/2 ML VIAL IVP (09:49)
[2021-12-21 10:03] LABS: Abs Immature Grans 0.04 10^3/uL (0.0-0.06); Absolute Monocyte Count 0.78 10^3/uL (0.1-0.8); Basophils % 0.7; Eosinophils % 0.4; HCT 54.9 % (40.0-50.0); Immature Grans % 0.3; Lymphocytes % 7.6; MCH 30.4 pg (27.0-33.0); MCHC 36.2 % (32.0-36.0); MCV 84 fL (80-95); MPV 11.4 fL (8.0-11.0); Monocytes % 5.8; Neutrophils % 85.2; Platelet Count 171 10^3/uL (130-400); RBC 6.55 10^6/uL (4.36-5.78); RDW 12.3 % (11.8-14.1); RDW-SD 37.2 fL; WBC 13.37 10^3/uL (4.4-10.8)
[2021-12-21 10:12] LABS: ALT 44 U/L (16-63); AST 19 U/L (15-37); Albumin 4.8 g/dL (3.4-5.0); Alkaline Phosphatase 98 U/L (46-116); Anion Gap 8.7 mmol/L (3-11); BUN 17 mg/dL (7-18); Bilirubin, Total 0.6 mg/dL (0.2-1.0); CO2 23.3 mmol/L (21.0-32.0); CREATININE 1.5 mg/dL (0.70-1.30); Calcium 9.7 mg/dL (8.5-10.1); Chloride 105 mmol/L (98-107); Estimated GFR 53.57 (mL/min/1.73m2); Glucose 151 mg/dL (74-106); Lipase 52 U/L (73-393); Sodium 137 mmol/L (136-145); Total Protein 8.5 g/dL (6.4-8.2)
[2021-12-21 10:13] LABS: Absolute Basophil Count 0.09 10^3/uL (0.0-0.2); Absolute Eosinophil Count 0.05 10^3/uL (0.0-0.7); Absolute Lymphocyte Count 1.02 10^3/uL (1.2-3.4); Absolute Neutrophil Count 11.39 10^3/uL (1.2-6.7)
[2021-12-21 10:31] LABS: Diff Comment RBC Morph Reviewed; HGB 19.9 g/dL (13.5-17.5); RBC Morphology Normal
[2021-12-21 10:41] LABS: COVID-19 PCR Negative (Negative); Influenza A PCR Negative (Negative); Influenza B PCR Negative (Negative); RSV PCR Negative (Negative)
[2021-12-21 11:20] VITALS: BP 134/66; PULSE 71; RESP 18; O2SAT 96
[2021-12-21 11:41] LABS: HCT 42.8 % (40.0-50.0); MCHC 34.3 % (32.0-36.0); MCV 87 fL (80-95); MPV 11.7 fL (8.0-11.0); Platelet Count 121 10^3/uL (130-400); RDW 12.4 % (11.8-14.1); RDW-SD 39.4 fL; WBC 10.66 10^3/uL (4.4-10.8)
[2021-12-21 11:43] LABS: HGB 14.7 g/dL (13.5-17.5)
[2021-12-21 11:59] LABS: Bilirubin Negative (Negative); Blood Trace-lysed (Negative); Clarity Clear (Clear); Glucose Negative (Negative); Ketones Negative (Negative); Leukocyte Esterase Negative (Negative); Nitrite Negative (Negative); Specific Gravity >= 1.030 (1.005-1.025); Urobilinogen 0.2 EU/dL (Up TO 0.2)
[2021-12-21 12:06] LABS: Bacteria Negative HPF (Negative); C & S Indicated? No; Casts 10-20 Hyaline LPF (Negative); Crystals Negative HPF (Negative); Epithelial Cells Rare HPF (Negative); Mucus Trace (Negative); RBC 0-2 HPF (0-2); WBC Negative HPF (0-5)
== END 2021-12-21 12:28 | disposition home or self-care (01) ==
PROVIDERS: Emergency Provider Physician Assistant; PCP Physician Assistant
DX: R11.2 Nausea with vomiting, unspecified (principal); R19.7 Diarrhea, unspecified; Z20.822 Contact with and (suspected) exposure to COVID-19
CPT/HCPCS: 36415; 80053; 83690; 85027; 87637; 96361; 96374; 99283; 99284; 81003; 81015; 85025; J2405

== ENCOUNTER 2023-07-16 14:29 | Outpatient (REF) | payer SELFPAY ==
[2023-07-16 16:03] LABS: BUN 17 mg/dL (7-18); CREATININE 1.2 mg/dL (0.70-1.30); Chloride 105 mmol/L (98-107); Estimated GFR 80.38 (mL/min/1.73m2); Glucose 108 mg/dL (74-106); Potassium 4.3 mmol/L (3.5-5.1); Sodium 141 mmol/L (136-145)
== END 2023-07-16 14:30 | disposition home or self-care (01) ==
LOC: NCHCN 14:29
PROVIDERS: PCP Physician Assistant; Visit Provider Physician Assistant
DX: I10 Essential (primary) hypertension (principal)
CPT/HCPCS: 80048

== ENCOUNTER 2023-10-02 17:17 | Emergency (ER) | payer BC, SELFPAY ==
[2023-10-02 17:24] VITALS: BP 188/103; PULSE 87; RESP 20; TEMP 36.6; O2SAT 97
--- NOTE | 2023-10-02 17:50 | ED.GENADUL_ITS ---
Discharge Plan Disposition Patient Disposition: Home Condition: Improving Discharge Details Clinical Impression: Finger laceration Primary Care Provider: Forrest Vincent ED Provider: Jerry Tan Home Meds and New Rx's Prescriptions: New cephalexin 500 mg capsule 500 mg PO TID 5 Days Qty: 15 0RF No Action lisinopril 10 mg Tablet 10 mg PO DAILY albuterol sulfate [ProAir HFA] 200 PUFF HFA aerosol inhaler 2 puff Inhalation Q4H PRN PRN (Reason: shortness of breath or wheezing) Qty: 1 0RF ibuprofen 200 MG tablet 200 mg PO Q6H PRN PRN Discharge Instructions Instructions: Finger Laceration (ED) Additional Instructions: Please keep wound clean and dry. Use finger splint. Please return to the emergency room for any worsening symptoms HPI General Date/Time Provider Initiated Documentation: 10/02/23 17:30 . HPI Narrative: 39-year-old male presents after lacerating index finger of left hand, was cutting a hose outside with a razor blade, slipped and lacerated finger hemostatic, last tetanus 1 year ago Related Data Home Medications Medication Instructions Recorded Confirmed ibuprofen 200 mg tablet 200 mg PO Q6H PRN PRN 07/31/16 10/02/23 lisinopril 10 mg tablet 10 mg PO DAILY 04/19/20 10/02/23 albuterol sulfate 90 mcg/actuation 2 puff inhalation Q4H PRN PRN 09/09/21 10/02/23 aerosol inhaler (ProAir HFA) shortness of breath or wheezing #1 inh cephalexin 500 mg capsule 500 mg PO TID 5 days #15 caps 10/02/23 Previous Rx's Medication Instructions Recorded albuterol sulfate 90 mcg/actuation 2 puff inhalation Q4H PRN PRN 09/09/21 aerosol inhaler (ProAir HFA) shortness of breath or wheezing #1 inh cephalexin 500 mg capsule 500 mg PO TID 5 days #15 caps 10/02/23 Allergies Allergy/AdvReac Type Severity Reaction Status Date / Time sulfamethoxazole Allergy Unknown Skin Rash Unverified 10/02/23 17:27 trimethoprim Allergy Unknown Other (See Unverified 10/02/23 17:27 Comment) General Stated Complaint: Laceration WALLACE: 4 Review of Systems Narrative: Review of Systems Constitutional: negative Eyes: negative ENT: negative Cardiovascular: negative Respiratory: negative Gastrointestinal: negative : negative Musculoskeletal: negative Skin: Finger laceration Neurologic: negative Psych: negative Exam Narrative Exam Narrative: Left hand: 2 cm linear laceration just distal to PIP joint dorsal aspect of second digit, hemostatic no foreign body, full flexion both proximally and distally in full extension intact, good capillary refill, median radial and ulnar nerve sensory distribution intact Course Vital Signs Vital signs: Vital Signs Temperature 36.6 C 10/02/23 17:24 Pulse 87 10/02/23 17:24 Respiratory Rate 20 10/02/23 17:24 Blood Pressure 188/103 H 10/02/23 17:24 Pulse Oximetry 97 10/02/23 17:24 Temperature 36.6 C 10/02/23 17:24 Temperature Source Temporal Artery Scan 10/02/23 17:24 Pulse 87 10/02/23 17:24 Respiratory Rate 20 10/02/23 17:24 Respiratory Effort Normal, Non-Labored 10/02/23 17:27 Blood Pressure 188/103 H 10/02/23 17:24 Blood Pressure Position Sitting 10/02/23 17:24 Pulse Oximetry 97 10/02/23 17:24 Oxygen Delivery Method Room Air 10/02/23 17:24 Oxygen Flow Rate 0 10/02/23 17:24 Pain Level 0 10/02/23 17:24 Procedures Laceration Laceration 1: Site: hand (Left index finger) Side (If applicable): left Size (cm): 2 Description: linear Depth: simple, single layer Local Anesthetic: Lidocaine 1% (Ring block) Amount of anesthesia used (mL): 3 Skin layer closed with: vicryl Size (cm): 5-0 Number of sutures: 3 Medical Decision Making 38-year-old male presents after accidentally lacerating dorsal aspect of his left second digit with a razor blade while cutting a hose in the yard, hemostatic no foreign body, neurovascular exam of limb intact, ring block applied, closed with 3 simple erupted 5-0 Vicryl sutures, given empiric Keflex given material patient was working with. Given home care instructions return precautions. No evidence of vascular or tendinous involvement no evidence of neurologic deficit. Quality:SDOH Health Related Social Needs: No Data to Display PFSH All Active Problems (Updated 10/02/23 @ 18:49 by Jerry Tan MD) Finger laceration (Acute) Calculus of left kidney (Acute) Medical History Calculus of left kidney Surgical History Extracorporeal shock wave lithotripsy (01/25/16) Social History Smoking/Tobacco Use Status: Current every day Tobacco Type: cigarettes Smoking risk assessment performed?: Yes Alcohol Intake: former Drug use: Never Substance use type: does not use Do you feel safe at home: Yes Do you feel safe in your relationship?: Yes
[2023-10-02] MEDS: Cephalexin 500 MG CAP PO (18:59)
== END 2023-10-02 19:04 | disposition home or self-care (01) ==
PROVIDERS: Emergency Provider Emergency Medicine; PCP Physician Assistant
DX: S61.211A Laceration without foreign body of left index finger without damage to nail, initial encounter (principal); F17.210 Nicotine dependence, cigarettes, uncomplicated; Y93.89 Activity, other specified; Y92.017 Garden or yard in single-family (private) house as the place of occurrence of the external cause
CPT/HCPCS: 12001; 99283

== ENCOUNTER 2024-03-29 16:34 | Emergency (ER) | payer BC, SELFPAY ==
[2024-03-29 16:36] VITALS: BP 157/87; PULSE 115; RESP 24; TEMP 37.7; O2SAT 96
--- NOTE | 2024-03-29 16:51 | W.ED.GENAD ---
Discharge Plan Disposition Patient Disposition: Home Condition: Good Discharge Details Clinical Impression: Pneumonia Primary Care Provider: Forrest Vincent ED Provider: Jameson Fine Home Meds and New Rx's Prescriptions: New doxycycline hyclate 100 mg tablet 100 mg PO BID Qty: 20 0RF No Action lisinopril 10 mg Tablet 20 mg PO DAILY albuterol sulfate [ProAir HFA] 200 PUFF HFA aerosol inhaler 2 puff Inhalation Q4H PRN PRN (Reason: shortness of breath or wheezing) Qty: 1 0RF ibuprofen 200 MG tablet 200 mg PO Q6H PRN PRN Discharge Instructions Instructions: Community-Acquired Pneumonia, Adult (DC) Additional Instructions: At this time you have evidence of mild pneumonia. I will contact you if your flu, COVID, or RSV returns positive. Please take the antibiotic as directed. If you take this antibiotic on an empty stomach it will cause nausea and potential vomiting. Make sure to take it with food. Avoid calcium and dairy products while on the antibiotic as this can inhibit its function. If you notice any worsening of your symptoms, or any new symptoms such as vomiting, diarrhea, fever, chills, shortness of breath, chest pain, numbness, weakness, or fainting , please return immediately to the emergency department for reevaluation. Please follow up with your primary care provider as soon as possible for reassessment and reevaluation. As always, it was a pleasure participating in your medical care today. Referrals: Forrest Vincent [Primary Care Provider] - Discharge Data Discharge Date/Time-TO BE ENTERED AT DEPARTURE: 03/29/24 17:12 HPI General Date/Time Provider Initiated Documentation: 03/29/24 16:44. HPI Narrative: 38-year-old male with past medical history of hypertension, and kidney stones, who presents today for evaluation of cough. Patient is a regular smoker. He states that for the last 5 days he has had a mild sore throat and cough. Sore throat has gotten better, however the cough has continued and lingered. He is bringing up some mild white and yellow productive sputum. He does admit to some mild sinus congestion. He denies vomiting or diarrhea. He denies headache or neck pain. He does admit to fatigue. No other complaints at this time. He denies any hemoptysis. Related Data Home Medications ?Medication ?Instructions ?Recorded ?Confirmed ibuprofen 200 mg tablet 200 mg PO Q6H PRN PRN 07/31/16 03/29/24 lisinopril 10 mg tablet 20 mg PO DAILY 04/19/20 03/29/24 albuterol sulfate 90 mcg/actuation 2 puff inhalation Q4H PRN PRN 09/09/21 03/29/24 aerosol inhaler (ProAir HFA) shortness of breath or wheezing #1 inh doxycycline hyclate 100 mg tablet 100 mg PO BID #20 tabs 03/29/24 Previous Rx's ?Medication ?Instructions ?Recorded albuterol sulfate 90 mcg/actuation 2 puff inhalation Q4H PRN PRN 09/09/21 aerosol inhaler (ProAir HFA) shortness of breath or wheezing #1 inh doxycycline hyclate 100 mg tablet 100 mg PO BID #20 tabs 03/29/24 Allergies Allergy/AdvReac Type Severity Reaction Status Date / Time sulfamethoxazole Allergy Unknown Skin Rash Unverified 03/29/24 16:35 trimethoprim Allergy Unknown Other (See Unverified 03/29/24 16:35 Comment) General Stated Complaint: RespSymp WALLACE: 3 Review of Systems All systems reviewed & are unremarkable except as noted in HPI and below Exam Narrative Exam Narrative: 1.Const: Well-nourished, Well-developed, appearing stated age 2.Eyes: PERRL, no conjunctival injection, and symmetrical lids. 3.ENT: Atraumatic external nose and ears. Moist MM. Neck: Symmetric, trachea midline, No thyromegaly. No erythema in the posterior oropharynx. 4.CVS: +S1/S2, No murmurs or gallops. Peripheral pulses 2+ and equal in all extremities. Brisk capillary refill in all extremities. 5.RESP: Unlabored respiratory effort. Mild crackles on the left lower lung field. No wheezes or rhonchi otherwise. 6.GI: Soft, Nontender/Nondistended, No hepatosplenomegaly. No guarding or rebound. 7.MSK: Normocephalic/Atraumatic, Extremities w/o deformity or ttp No cyanosis or clubbing, Normal movement of all extremities 8.Skin: Warm, Dry. No rashes or lesions. 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 Sensation grossly intact, no focal neurologic deficits. 10.Psych: (AAO) x3. Appropriate mood and affect Course Vital Signs Vital signs: Vital Signs Temperature 37.7 C H 03/29/24 16:36 Pulse 115 H 03/29/24 16:36 Respiratory Rate 24 03/29/24 16:36 Blood Pressure 157/87 H 03/29/24 16:36 Pulse Oximetry 96 03/29/24 16:36 Temperature 37.7 C H 03/29/24 16:36 Temperature Source Temporal Artery Scan 03/29/24 16:36 Pulse 115 H 03/29/24 16:36 Respiratory Rate 24 03/29/24 16:36 Blood Pressure 157/87 H 03/29/24 16:36 Blood Pressure Position Sitting 03/29/24 16:36 Pulse Oximetry 96 03/29/24 16:36 Oxygen Delivery Method Room Air 03/29/24 16:36 Oxygen Flow Rate 0 03/29/24 16:36 Pain Level 0 03/29/24 16:36 Medical Decision Making 38-year-old male with past medical history of hypertension, and kidney stones, who presents today for evaluation of cough. Patient is a regular smoker. He states that for the last 5 days he has had a mild sore throat and cough. Sore throat has gotten better, however the cough has continued and lingered. He is bringing up some mild white and yellow productive sputum. He does admit to some mild sinus congestion. He denies vomiting or diarrhea. He denies headache or neck pain. He does admit to fatigue. No other complaints at this time. He denies any hemoptysis. Physical exam demonstrates borderline fever, mildly elevated heart rate. Mild crackles in the left lower lung field. Suspect clinical pneumonia. COVID flu and RSV testing negative. I do feel that the patient would benefit from antibacterial coverage for his symptoms. Will recommend continued smoking cessation. Will give doxycycline, will give prescription for home use. Patient shows no hypoxemia, no indication for admission. Patient stable for discharge. Discussed red flags for which to return. I have extensively reviewed the treatment plan and discharge instructions with the patient. I have addressed all patient concerns at this time. The patient was made aware of what symptoms to monitor for that would warrant a return to the emergency department. Discussed the plan with the patient, they demonstrate verbal understanding and agreement with our assessment and plan at this time. The documentation in this chart was dictated using Cuedd dictation software. Please excuse any dictation errors. Quality:SDOH Health Related Social Needs: No Data to Display PFSH All Active Problems Pneumonia (Acute) Calculus of left kidney (Acute) Medical History Calculus of left kidney Surgical History Extracorporeal shock wave lithotripsy (01/25/16) Social History Smoking/Tobacco Use Status: Current every day Tobacco Type: cigarettes Smoking risk assessment performed?: Yes Alcohol Intake: former Drug use: Never Substance use type: does not use Housing: house Do you feel safe at home: Yes Do you feel safe in your relationship?: Yes
[2024-03-29] MEDS: Doxycycline Hyclate 100 MG, 2 CAPS/BTL PO (17:05)
[2024-03-29] MEDS: Acetaminophen 500 MG TAB 1000 MG PO (17:05)
[2024-03-29 17:10] VITALS: BP 157/87; PULSE 100; PULSE 90; RESP 22; RESP 24; TEMP 37.7; O2SAT 96; O2SAT 98
[2024-03-29 17:34] LABS: COVID-19 PCR Negative (Negative); Influenza A PCR Negative (Negative); Influenza B PCR Negative (Negative); RSV PCR Negative (Negative); Source Nasopharynx
== END 2024-03-29 17:12 | disposition home or self-care (01) ==
PROVIDERS: Emergency Provider Student in an Organized Health Care Education/Training Program; PCP Physician Assistant
DX: J18.9 Pneumonia, unspecified organism (principal); R05.1 Acute cough; R07.0 Pain in throat; R50.9 Fever, unspecified; F17.200 Nicotine dependence, unspecified, uncomplicated
CPT/HCPCS: 87637; 99283

== ENCOUNTER 2024-08-18 15:50 | Emergency (ER) | payer BC, SELFPAY ==
[2024-08-18] VITALS (20 sets, daily range): BP systolic 155–198; BP diastolic 79–128; PULSE 85–117; RESP 16–28; TEMP 36.8; O2SAT 95–98
--- NOTE | 2024-08-18 16:00 | RT.EKG_ITS ---
APPROVED REPORT Exam: Resting ECG Reason for Exam: chest pain Patient Location: E HR:93 bpm ECG Measurements Heart Rate 93 AXIS AR 174 P 39 QRSd 101 QRS -35 QT 325 T 59 QTc 405 Conclusion Sinus rhythm...normal P axis, V-rate 60- 99 Left axis deviation...QRS axis (-30,-90) ST elev, probable normal early repol pattern...ST elevation, age<55
--- NOTE | 2024-08-18 16:15 | DI.RAD_ITS ---
Exam(s) XR CHEST 2V PA LATERAL EXAM: XR CHEST 2V PA LATERAL CLINICAL HISTORY: shortness of breath TECHNIQUE: 2D digital imaging was performed. Two views. COMPARISON: CR,XR XR PORTABLE CHEST AP from 10/31/2019 FINDINGS: HEART: Normal size. Aorta: Not dilated. PULMONARY VASCULATURE: Normal. MEDIASTINUM: Unremarkable. LUNGS: Suboptimally inflated but clear. PLEURAL SPACE: No pleural effusion or pneumothorax. BONE:Unremarkable for age. SOFT TISSUES: Unremarkable. IMPRESSION: No acute abnormality. DATA REPOSITORY: RADIATION DOSE DELIVERED:
--- NOTE | 2024-08-18 16:24 | ED.GENADUL_ITS ---
Discharge Plan Disposition Patient Disposition: Home Condition: Stable Discharge Details Clinical Impression: Nausea & vomiting, Chest pain Primary Care Provider: Forrest Vincent ED Provider: Nash Mane Home Meds and New Rx's Prescriptions: New ondansetron 4 mg tablet,disintegrating 4 mg PO Q8H PRN (Reason: nausea and vomiting) Qty: 30 0RF Continued lisinopril 10 mg Tablet 20 mg PO DAILY albuterol sulfate [ProAir HFA] 200 PUFF HFA aerosol inhaler 2 puff Inhalation Q4H PRN PRN (Reason: shortness of breath or wheezing) Qty: 1 0RF ibuprofen 200 MG tablet 200 mg PO Q6H PRN PRN Discharge Instructions Additional Instructions: Your lab work and chest x-ray did not show any concerning findings. HPI General Mode of arrival: ambulatory . Date/Time Provider Initiated Documentation: 08/18/24 15:54 . Limitations to Documentation: no limitations . Information obtained by: patient . History of Present Illness 39 year old M presents to the emergency department with the chief complaint of Not feeling well, described as moderate, Quality is described as constant, and is localized to the chest. Patient reports no radiation. Patient started experiencing this hour(s) (8) and it has been constant. No relieving factors improve symptom(s), No exacerbating factors reported . Patient notes chest pain, fever/chills and shortness of breath; denies nausea/vomiting. Patient did receive the following treatments prior to arrival, none Related Data Home Medications ?Medication ?Instructions ?Recorded ?Confirmed ibuprofen 200 mg tablet 200 mg PO Q6H PRN PRN 07/31/16 08/18/24 lisinopril 10 mg tablet 20 mg PO DAILY 04/19/20 08/18/24 albuterol sulfate 90 mcg/actuation 2 puff inhalation Q4H PRN PRN 09/09/21 08/18/24 aerosol inhaler (ProAir HFA) shortness of breath or wheezing #1 inh ondansetron 4 mg disintegrating 4 mg PO Q8H PRN nausea and 08/18/24 tablet vomiting #30 tabs Previous Rx's ?Medication ?Instructions ?Recorded albuterol sulfate 90 mcg/actuation 2 puff inhalation Q4H PRN PRN 09/09/21 aerosol inhaler (ProAir HFA) shortness of breath or wheezing #1 inh ondansetron 4 mg disintegrating 4 mg PO Q8H PRN nausea and 08/18/24 tablet vomiting #30 tabs Allergies Allergy/AdvReac Type Severity Reaction Status Date / Time sulfamethoxazole Allergy Unknown Skin Rash Verified 08/18/24 16:02 trimethoprim Allergy Unknown Other (See Verified 08/18/24 16:02 Comment) General Stated Complaint: Chest Pain WALLACE: 3 Review of Systems All systems reviewed & are unremarkable except as noted in HPI and below Constitutional Constitutional: Reports chills, Denies fever(s) and Denies weakness Cardiovascular Cardiovascular: Reports chest pain and Reports dyspnea Respiratory Respiratory: Denies cough and Reports dyspnea Gastrointestinal Gastrointestinal: Denies vomiting Genitourinary Genitourinary: Denies dysuria Integumentary/Breasts Skin/Breast: Denies rash Neurologic Neurologic: Denies weakness Exam Const General: no acute distress Orientation: alert HENMT Head: normal to inspection Ears: external ears normal General nose exam: external nose normal Mouth: moist mucous membranes Eyes General: appearance normal, both eyes and all related structures Neck Neck: normal visual inspection Chest Chest: normal inspection of the chest Resp Effort & Inspection: normal respiratory effort and able to speak in complete sentences Auscultation: clear to auscultation bilaterally Cardio Jugular venous pressure: no JVD Rate: regular rate Heart Sounds: no murmurs GI Palpation: soft and nontender Skin General skin exam: no rashes or lesions noted Neuro General: patient alert and patient oriented x3 Extrem General: normal to inspection Psych Mental Status: mental status grossly normal Course Vital Signs Vital signs: Vital Signs Temperature 36.8 C 08/18/24 16:03 Pulse 105 H 08/18/24 16:03 Respiratory Rate 08/18/24 16:03 Blood Pressure 165/117 H 08/18/24 16:03 Pulse Oximetry 98 08/18/24 16:03 Temperature 36.8 C 08/18/24 16:03 Temperature Source Temporal Artery Scan 08/18/24 16:03 Pulse 105 H 08/18/24 16:03 Respiratory Rate 08/18/24 16:03 Blood Pressure 165/117 H 08/18/24 16:03 Blood Pressure Position Sitting 08/18/24 16:03 Pulse Oximetry 98 08/18/24 16:03 Oxygen Delivery Method Room Air 08/18/24 16:03 Oxygen Flow Rate 0 08/18/24 16:03 Pain Level 7 08/18/24 16:03 Medical Decision Making 39-year-old male who denies any chronic medical problems comes in with not feeling well today. He says that while at work today he started feeling fatigue and notes a dry cough and lateral chest discomfort in his ribs. He denies any vomiting, no fevers but has had chills. He denies any drug use, recent travel. He is well-appearing on exam. He is clear lung sounds, no abnormalities noted in the chest. He has a soft nontender abdomen. His symptoms seem consistent with likely viral illness but given the complaints of chest discomfort and shortness of breath walking around I will obtain a CBC CMP and troponins, will also obtain a D-dimer as this initial heart rate in triage was 105. Will obtain an x-ray to evaluate for possible pneumonia. He has been turned back pain and equal peripheral pulses so doubt dissection Labs and imaging unremarkable, patient is now tolerating p.o., has no abdominal tenderness on reexam. Given reassuring workup I feel he stable for discharge and I suspect he is coming down with a viral syndrome. He will follow-up with his PCP if not improving and return precautions given Differential Diagnosis Differential Diagnosis: Flu, RSV, pneumonia, PE Medical Records Medical records reviewed: Yes I reviewed the patient's medical records. Lab Data Lab results reviewed: Yes I reviewed the patient's lab results. ECG Data Attestation: I personally reviewed and interpreted this ECG (s) as follows: Prior ECG tracings: available for review Interpretation: 6 rhythm, rate of 93, NV 174, no STEMI Quality:SDOH Health Related Social Needs: Health related social needs problems with daily activi ties (Z73.9) [facility] All Active Problems (Updated 08/18/24 @ 19:00 by Nash Mane MD) Chest pain (Acute) Nausea & vomiting (Acute) Calculus of left kidney (Acute) Medical History Calculus of left kidney Surgical History Extracorporeal shock wave lithotripsy (01/25/16) Social History Smoking/Tobacco Use Status: Current every day Tobacco Type: cigarettes Smoking risk assessment performed?: Yes Alcohol Intake: former Drug use: Never Substance use type: does not use Housing: house Do you feel safe at home: Yes Do you feel safe in your relationship?: Yes
[2024-08-18 16:36] LABS: Abs Immature Grans 0.02 10^3/uL (0.0-0.06); Absolute Basophil Count 0.06 10^3/uL (0.0-0.2); Absolute Eosinophil Count 0.12 10^3/uL (0.0-0.7); Absolute Lymphocyte Count 1.43 10^3/uL (1.2-3.4); Absolute Monocyte Count 0.63 10^3/uL (0.1-0.8); Absolute Neutrophil Count 7.51 10^3/uL (1.2-6.7); Basophils % 0.6 %; Eosinophils % 1.2 %; HCT 52.1 % (40.0-50.0); HGB 17.8 g/dL (13.5-17.5); Immature Grans % 0.2 %; Lymphocytes % 14.6 %; MCH 29.7 pg (27.0-33.0); MCHC 34.2 % (32.0-36.0); MCV 87 fL (80-95); MPV 11.3 fL (8.0-11.0); Monocytes % 6.4 %; Platelet Count 142 10^3/uL (130-400); RDW 12.4 % (11.8-14.1); RDW-SD 39.8 fL; WBC 9.77 10^3/uL (4.4-10.8)
[2024-08-18 16:43] LABS: RBC 5.99 10^6/uL (4.36-5.78)
[2024-08-18 17:00] LABS: ALT 42 U/L (16-63); AST 22 U/L (15-37); Alkaline Phosphatase 103 U/L (46-116); BUN 18 mg/dL (7-18); Bilirubin, Direct 0.1 mg/dL (0.0-0.2); Bilirubin, Total 0.46 mg/dL (0.2-1.0); CREATININE 1.2 mg/dL (0.70-1.30); Calcium 9.3 mg/dL (8.5-10.1); Chloride 104 mmol/L (98-107); Estimated GFR 79.88 (mL/min/1.73m2); Glucose 116 mg/dL (74-106); Lipase 22 U/L (<78); Magnesium 1.7 mg/dL (1.8-2.4); NT-proBNP 45 pg/mL (<300); Sodium 144 mmol/L (136-145); TSH (W/Ref FT4) 2.33 uIU/mL (0.36-3.74); Total Protein 7.7 g/dL (6.4-8.2); Troponin I 6 ng/L (<or=76)
[2024-08-18 17:03] LABS: D-Dimer 186 ng/mlFEU (<500)
[2024-08-18 17:06] LABS: COVID-19 PCR Negative (Negative); Influenza A PCR Negative (Negative); Influenza B PCR Negative (Negative); RSV PCR Negative (Negative)
[2024-08-18 17:07] LABS: Source NASOPHARYNX
[2024-08-18 18:10] LABS: Troponin I 7 ng/L (<or=76)
[2024-08-18] MEDS: Droperidol 5 MG/2 ML VIAL 2.5 MG IVP (18:13)
== END 2024-08-18 19:24 | disposition home or self-care (01) ==
PROVIDERS: Emergency Provider Emergency Medicine; PCP Physician Assistant
DX: R07.9 Chest pain, unspecified (principal); R11.2 Nausea with vomiting, unspecified; F17.210 Nicotine dependence, cigarettes, uncomplicated
CPT/HCPCS: 36415; 80053; 83690; 87637; 93005; 96374; 99284; 71046; 82248; 83735; 83880; 84443; 84484; 85025; 85379; 93010; J1790

== ENCOUNTER 2024-12-14 16:30 | Emergency (ER) | payer BC, SELFPAY ==
[2024-12-14 16:34] VITALS: BP 151/85; PULSE 84; RESP 16; TEMP 36.6; O2SAT 98
--- NOTE | 2024-12-14 17:44 | ED.GENADUL_ITS ---
Discharge Plan Disposition Patient Disposition: Home Discharge Details Clinical Impression: Lower back pain, Elevated blood pressure reading Primary Care Provider: Forrest Vincent ED Provider: Gilda Leon Home Meds and New Rx's Prescriptions: No Action lisinopril 10 mg Tablet 20 mg PO DAILY albuterol sulfate [ProAir HFA] 200 PUFF HFA aerosol inhaler 2 puff Inhalation Q4H PRN PRN (Reason: shortness of breath or wheezing) Qty: 1 0RF ibuprofen 200 MG tablet 200 mg PO Q6H PRN PRN Discharge Instructions Instructions: Low Back Pain (DC) Additional Instructions: Your workup today was reassuring. Please call your primary care provider to schedule a follow up appointment for reassessment if you are not feeling significantly better within the next week. A referral to physical therapy may be helpful. You may use ibuprofen 600 mg every 8 hours and tylenol 650 mg every 8 hours as needed for pain control. Lidocaine patches, heat/ice (not to be used over lidocaine patches), and gentle massage/stretching may also be helpful. Return to emergency care if you develop fevers associated with back pain, blood in your urine, numbness in your underwear area, change in bowel/bladder function (inability to empty bladder, loss of bladder/bowel control), leg weakness or numbness, or if you are very worried and need to be rechecked again immediately. Discharge Data Discharge Date/Time-TO BE ENTERED AT DEPARTURE: 12/14/24 18:14 HPI General Date/Time Provider Initiated Documentation: 12/14/24 17:34 . HPI Narrative: Giovani is a 39-year-old male who presents to the emergency department for evaluation of left lower back pain, onset Friday after twisting while discarding a heavy metal door into a dumpster. Pain radiates from left back to center and down leg, noticeable when bending over or standing up. This has been constant since onset, has not taken any medications. Also reports abdominal muscle discomfort and generalized soreness. No history of back surgeries, spinal taps, fevers/chills, distal numbness, saddle anesthesia, urinary or bowel abnormalities, hematuria, or UTI symptoms. No regular alcohol consumption, manias, diabetes, or GI bleeding history. PMH significant for past episode of 20 mm kidney stone, fragmented. Says that this pain is different from kidney stone pain. Related Data Home Medications ?Medication ?Instructions ?Recorded ?Confirmed ibuprofen 200 mg tablet 200 mg PO Q6H PRN PRN 07/31/16 12/14/24 lisinopril 10 mg tablet 20 mg PO DAILY 04/19/20 12/14/24 albuterol sulfate 90 mcg/actuation 2 puff inhalation Q4H PRN PRN 09/09/21 12/14/24 aerosol inhaler (ProAir HFA) shortness of breath or wheezing #1 inh Previous Rx's ?Medication ?Instructions ?Recorded albuterol sulfate 90 mcg/actuation 2 puff inhalation Q4H PRN PRN 09/09/21 aerosol inhaler (ProAir HFA) shortness of breath or wheezing #1 inh Allergies Allergy/AdvReac Type Severity Reaction Status Date / Time sulfamethoxazole Allergy Unknown Skin Rash Verified 12/14/24 16:37 trimethoprim Allergy Unknown Other (See Verified 12/14/24 16:37 Comment) General Stated Complaint: Nk/Back Pain WALLACE: 4 Exam Narrative Exam Narrative: General Appearance: Normal. Vital signs: Within normal limits. Gastrointestinal: Abdomen examined, soft, nondistended, nontender to palpation. Back, Musculoskeletal: Back examined, paraspinal tenderness noted to left lower back. No T-spine or L-spine step-off/deformity/tenderness to palpation. No ecchymosis or skin lesions noted. Extremities: Good leg strength bilaterally, 5 out of 5 muscle strength. Neurological: Reflexes checked; patellar reflexes 2+. Sensation grossly intact. Normal gait. Straight leg test negative bilaterally. Course Vital Signs Vital signs: Vital Signs Temperature 36.6 C 12/14/24 16:34 Pulse 84 12/14/24 16:34 Respiratory Rate 16 12/14/24 16:34 Blood Pressure 151/85 H 12/14/24 16:34 Pulse Oximetry 98 12/14/24 16:34 Temperature 36.6 C 12/14/24 16:34 Pulse 84 12/14/24 16:34 Respiratory Rate 16 12/14/24 16:34 Blood Pressure 151/85 H 12/14/24 16:34 Pulse Oximetry 98 12/14/24 16:34 Pain Level 4 12/14/24 16:34 Medical Decision Making Initial Assessment: 39-year-old male with left lower back pain likely due to muscle strain from heavy lifting. ED Course: - Applied lidocaine patch. - Recommended Tylenol and ibuprofen: 3 ibuprofen tablets 3 times daily, 2 regular strength Tylenol tablets 3 times daily. - Advised to avoid heat or ice over lidocaine patch. - Suggested hot showers and heating pad for relief. Final Assessment: Muscle strain from heavy lifting causing left lower back pain. No red flags concerning for significant trauma, neurovascular compromise, spinal epidural abscess, or other serious etiology requiring emergent diagnostic imaging or labs at this time treatment includes lidocaine patch, Tylenol, and ibuprofen. Advised to avoid heat or ice over lidocaine patch and use hot showers and heating pad for relief as needed. Clinical Impression: - Muscle strain Disposition: - Follow-Up: Follow-up with PCP at [facility] if no improvement by next week. PT may be indicated if symptoms persist. Seek immediate medical attention for leg weakness, perineal numbness, or loss of bowel/bladder control. MDM Components Evaluation: - Number of Differential Diagnoses or Management Options: Muscle strain - Amount and Complexity of Data Reviewed: Physical examination - Risk of Complication and Morbidity or Mortality: Low risk, but advised to seek immediate medical attention for leg weakness, perineal numbness, or loss of bowel/bladder control. Patient consented to the use of NASH Quality:SDOH Health Related Social Needs: Health related social needs problems with daily activi ties (Z73.9) [facility] All Active Problems (Updated 12/14/24 @ 18:03 by Gilda Funk) Elevated blood pressure reading (Acute) Lower back pain (Acute) Calculus of left kidney (Acute) Medical History Calculus of left kidney Surgical History Extracorporeal shock wave lithotripsy (01/25/16) Social History Smoking/Tobacco Use Status: Current every day Tobacco Type: cigarettes Smoking risk assessment performed?: Yes Alcohol Intake: former Drug use: Never Substance use type: does not use Housing: house Do you feel safe at home: Yes Do you feel safe in your relationship?: Yes
[2024-12-14] MEDS: Lidocaine 5% Patch 1 PATCH TP (18:07)
[2024-12-14] MEDS: Ibuprofen 600 MG TAB PO (18:08)
[2024-12-14] MEDS: Acetaminophen 325 MG TAB 650 MG PO (18:08)
[2024-12-14 18:12] VITALS: BP 128/84; PULSE 82; RESP 18; TEMP 36.6; O2SAT 99
== END 2024-12-14 18:14 | disposition home or self-care (01) ==
PROVIDERS: Emergency Provider Nurse Practitioner Family; PCP Physician Assistant
DX: M54.50 Low back pain, unspecified (principal); R03.0 Elevated blood-pressure reading, without diagnosis of hypertension; F17.210 Nicotine dependence, cigarettes, uncomplicated
CPT/HCPCS: 99283

== ENCOUNTER 2024-12-26 12:00 | Emergency (ER) | payer BC, SELFPAY ==
[2024-12-26 12:00] VITALS: BP 156/90; PULSE 87; RESP 16; TEMP 36.8; O2SAT 95
--- NOTE | 2024-12-26 12:00 | DI.RAD_ITS ---
Exam(s) XR CHEST 2V PA LATERAL EXAM: XR CHEST 2V PA LATERAL CLINICAL HISTORY: cough, intermittent fever. TECHNIQUE: 2D digital imaging was performed. COMPARISON: CR XR CHEST 2V PA LATERAL from 08/18/2024 FINDINGS: 2 views: Heart size is normal. The mediastinum is not widened. Lungs are clear. No infiltrates nor pleural effusions. IMPRESSION: No acute pulmonary findings. DATA REPOSITORY: RADIATION DOSE DELIVERED:
[2024-12-26] MEDS: Amoxicillin 875/Clav. 125 TAB PO (12:21)
[2024-12-26 12:25] VITALS: BP 156/90; PULSE 87; RESP 16; TEMP 36.8; O2SAT 95
--- NOTE | 2024-12-26 12:59 | ED.GENADUL_ITS ---
Discharge Plan Disposition Patient Disposition: Home Condition: Stable Discharge Details Clinical Impression: Dental infection, Post-viral cough syndrome Primary Care Provider: Forrest Vincent ED Provider: Naomi Flynn Home Meds and New Rx's Prescriptions: New amoxicillin-pot clavulanate 875-125 mg tablet 1 tab PO BID 9 Days Qty: 18 0RF No Action lisinopril 10 mg Tablet 20 mg PO DAILY albuterol sulfate [ProAir HFA] 200 PUFF HFA aerosol inhaler 2 puff Inhalation Q4H PRN PRN (Reason: shortness of breath or wheezing) Qty: 1 0RF ibuprofen 200 MG tablet 200 mg PO Q6H PRN PRN Discharge Instructions Instructions: Dental Pain (DC) Additional Instructions: You were seen in the emergency department today for evaluation of dental pain and a cough. In our department you had a full physical examination performed, and had an x-ray of your chest that did not show any large pneumonias or other abnormalities. You are likely experiencing a postviral cough, and I am concerned for a dental infection, though you did not have any abscesses that required drainage today. We have started you on an antibiotic called Augmentin, please take all this medication until it is gone, even if you start to feel better. You need to follow-up with your dentist at your scheduled appointment. Please follow-up with your primary care provider in the next few days to discuss this visit and any symptoms that change, worsen, or persist. Thank you for allowing us to be part of your care. HPI General Mode of arrival: ambulatory . Date/Time Provider Initiated Documentation: 12/26/24 12:09 . Limitations to Documentation: no limitations . Information obtained by: patient and old records reviewed . HPI Narrative: This is a 39-year-old male patient presenting for evaluation of dental pain, face pain, and persistent cough. The patient reports that he had a recent viral upper respiratory infection, but his cough has persisted for the last week. He states that when he coughs it irritates his right upper molar, which has been giving him trouble. This pain radiates up into his face and his head. He has not noted a recent fever, cough is nonproductive, states that he has been using [id number] medications for management of his symptoms. He has a dental appointment scheduled for approximately 1 month. Denies vision changes, difficulty opening the mouth or swallowing, no neck stiffness. Related Data Home Medications ?Medication ?Instructions ?Recorded ?Confirmed ibuprofen 200 mg tablet 200 mg PO Q6H PRN PRN 07/31/16 12/26/24 lisinopril 10 mg tablet 20 mg PO DAILY 04/19/20 12/26/24 albuterol sulfate 90 mcg/actuation 2 puff inhalation Q4H PRN PRN 09/09/21 12/26/24 aerosol inhaler (ProAir HFA) shortness of breath or wheezing #1 inh amoxicillin 875 mg-potassium 1 tab PO BID 9 days #18 tabs 12/26/24 clavulanate 125 mg tablet Previous Rx's ?Medication ?Instructions ?Recorded albuterol sulfate 90 mcg/actuation 2 puff inhalation Q4H PRN PRN 09/09/21 aerosol inhaler (ProAir HFA) shortness of breath or wheezing #1 inh amoxicillin 875 mg-potassium 1 tab PO BID 9 days #18 tabs 12/26/24 clavulanate 125 mg tablet Allergies Allergy/AdvReac Type Severity Reaction Status Date / Time sulfamethoxazole Allergy Unknown Skin Rash Verified 12/26/24 12:03 trimethoprim Allergy Unknown Other (See Verified 12/26/24 12:03 Comment) General Stated Complaint: DentalOral WALLACE: 4 Exam Narrative Exam Narrative: Gen: Awake and alert, in no apparent distress HEENT: Non-icteric sclera, PERRL, EOMs are full. The patient has dental caries, disease in the right upper molar #2 has evidence of extensive calculus, no purulent discharge or periapical abscess noted. No woody induration of the floor of the mouth, no swelling of the cheek or face. Posterior pharynx without erythema, exudate, or asymmetry/swelling Neck: Supple, no meningismus, no difficulty with neck movement, no palpable lymphadenopathy Lungs: No apparent respiratory distress, normal respiratory effort. The patient has scattered crackles more on the left than the right, no wheezes, rhonchi, rales CV: Appears well perfused Abdomen: Non-distended MSK: Moves 4 extremities without apparent limitation in ROM Skin: Visualized skin without rashes, cyanosis. Neuro: Normal Gait, no obvious focal deficits or facial asymmetry. Speaks in full, clear sentences. Psych: Appropriate for situation. Course Vital Signs Vital signs: Vital Signs Temperature 36.8 C 12/26/24 12:00 Pulse 87 12/26/24 12:00 Respiratory Rate 16 12/26/24 12:00 Blood Pressure 156/90 H 12/26/24 12:00 Pulse Oximetry 95 12/26/24 12:00 Temperature 36.8 C 12/26/24 12:25 Temperature Source Oral 12/26/24 12:25 Pulse 87 12/26/24 12:25 Respiratory Rate 16 12/26/24 12:25 Blood Pressure 156/90 H 12/26/24 12:25 Blood Pressure Position Sitting 12/26/24 12:00 Pulse Oximetry 95 12/26/24 12:25 Oxygen Delivery Method Room Air 12/26/24 12:25 Oxygen Flow Rate 0 12/26/24 12:00 Pain Level 7 12/26/24 12:00 Medical Decision Making This is a 39-year-old male patient presenting for evaluation of right upper molar pain, and persistent cough. His cough is most likely postviral, I did also consider bronchitis, pneumonia, sinusitis. Considered dental infection including dental caries, no evidence for periapical abscess, and the exam is reassuring against deep space abscess such as Colten's angina, [employer], RPA. I note no significant dental trauma, patient is hemodynamically appropriate my concern for systemic infection such as bacteremia or sepsis is quite low. We will obtain a chest x-ray to evaluate the lungs, though the antibiotics that I intend to prescribe for his dental infection will also provide adequate coverage of any pulmonary or sinus infections. At this time the patient is not desiring of any medication for management of pain. X-ray image reviewed by myself, showing no focal consolidations or acute abnormalities to explain the patient's persistent cough. I provided him with a prescription for 10 days of Augmentin, and recommended following up with his outpatient dentist for definitive management. At this time, the patient has had a full medical evaluation and is safe for discharge to home. They are hemodynamically stable, ambulatory, and tolerating PO. They are understanding of the follow-up plan and return precautions. They left our facility without incident. Naomi Flynn MD Medical Records Medical records reviewed: Yes I reviewed the patient's medical records. Quality:SDOH Health Related Social Needs: Health related social needs problems with daily activi ties (Z73.9) PFSH All Active Problems (Updated 12/26/24 @ 13:13 by Naomi Flynn MD) Post-viral cough syndrome (Acute) Dental infection (Acute) Elevated blood pressure reading (Acute) Lower back pain (Acute) Calculus of left kidney (Acute) Medical History Calculus of left kidney Surgical History Extracorporeal shock wave lithotripsy (01/25/16) Social History Smoking/Tobacco Use Status: Current every day Tobacco Type: cigarettes Smoking risk assessment performed?: Yes Alcohol Intake: former Drug use: Never Substance use type: does not use Housing: house Do you feel safe at home: Yes Do you feel safe in your relationship?: Yes
[2024-12-26] MEDS: Amox. 875/Clav. 125, 2 TABS/BTL 1 TAB PO (13:17)
--- NOTE | 2024-12-26 13:17 | DI.VRAD_ITS ---
PROCEDURE INFORMATION: Exam: XR Chest Exam date and time: 12/26/2024 12:38 PM Age: 39 years old Clinical indication: Other: Cough, intermittent fever TECHNIQUE: Imaging protocol: Radiologic exam of the chest. Views: 2 views. COMPARISON: CR XR CHEST 2V PA LATERAL 08/18/2024 5:18 PM FINDINGS: Lungs: Unremarkable. No consolidation. Pleural spaces: Unremarkable. No pleural effusion. No pneumothorax. Heart/Mediastinum: Unremarkable. No cardiomegaly. Bones/joints: Unremarkable. IMPRESSION: No acute findings. Dictated and Authenticated by: Isra Brand MD. Orderin [facility]. Chucky Salgado MD
== END 2024-12-26 13:21 | disposition home or self-care (01) ==
PROVIDERS: Emergency Provider Emergency Medicine; PCP Physician Assistant
DX: K04.7 Periapical abscess without sinus (principal); R05.9 Cough, unspecified; Z73.9 Problem related to life management difficulty, unspecified
CPT/HCPCS: 99283 ×2; 71046